=== PATIENT | female | born 1970 | race Caucasian/White ===

== ENCOUNTER 2016-07-07 10:54 | Emergency (ER) | payer BC ==
[~2016-07-07 10:54] MED LIST: ALBUTEROL SULF8.5 GM IH; B COMPLEX1 CAP PO; DOXYCYCLINE HY100 M5 PO; MELOXICAM15 M1 PO; MELOXICAM15 MG PO; MOTRIN800 MG PO; MULTI VITAMIN1 EACH PO; NAPROXEN500 M1 PO; NASONEX17 GM NS; NORCO 5-325 TA1 EACH PO; NORCO 5/3251 TAB PO; PREDNISONE10 M1 PO; PREDNISONE20 MG PO; PRENATABS FA T1 EACH PO; PRENATAL1 EACH PO; PRILOSEC OTC20 M1 PO; PROAIR HFA8.5 GM INH; PROBIOTIC1 EACH PO; PROGESTERONE200 MG PO; QVAR7.3 GM INH; QVAR8.7 GM IH; SINGULAIR10 MG PO; TIZANADINE HCL4 MG PO; VITAMIN C1000 MG PO; VITAMIN D32000 UNI1 PO; VITAMIN D32000 UNI2 PO; VITAMIN D35000 UNIT PO; ZITHROMAX250 MG PO; ZOFRAN ODT4 MG PO
[2016-07-07] MEDS ORDERED: VITAMIN D PO (11:21)
[2016-07-07] MEDS ORDERED: PROGESTERONE200 M1 PO ×2 (11:21→11:23)
[2016-07-07] MEDS ORDERED: VITAMIN B125000 MCG PO (11:22)
[2016-07-07] MEDS ORDERED: DHEA MICRONIZED5 GM MC (11:22)
[2016-07-07] MEDS ORDERED: JUBLIA4 ML TP (11:23)
[2016-07-07] MEDS ORDERED: PREDNISONE20 M1 PO (12:42)
[2016-07-08] MEDS ORDERED: PEPCID20 M1 PO (16:12)
== END 2016-07-07 13:10 ==
LOC: EDMED 10:54
DX: T78.40XA Allergy, unspecified, initial encounter (principal); R07.89 Other chest pain; E11.9 Type 2 diabetes mellitus without complications; Z79.899 Other long term (current) drug therapy
CPT/HCPCS: J1885; J7512

== ENCOUNTER 2016-07-08 14:27 | Emergency (ER) | payer BC ==
[~2016-07-08 14:27] MED LIST changes: +DHEA MICRONIZED5 GM MC; +JUBLIA4 ML TP; +PREDNISONE20 M1 PO; +PROGESTERONE200 M1 PO; +VITAMIN B125000 MCG PO; +VITAMIN D PO
[2016-07-08] MEDS ORDERED: PEPCID20 M1 PO (16:12)
== END 2016-07-08 16:39 ==
LOC: EDMED 14:27
DX: R06.00 Dyspnea, unspecified (principal); T38.0X5A Adverse effect of glucocorticoids and synthetic analogues, initial encounter; T45.0X5A Adverse effect of antiallergic and antiemetic drugs, initial encounter
CPT/HCPCS: J1200